=== PATIENT | female | born 1965 | race African-American/Black ===

== ENCOUNTER 2021-02-10 21:40 | Inpatient (IN) ==
[2021-02-11 01:53] LABS: Basophils % 0.1 % (0.0-0.8); Eosinophils # 0.1 10*3/uL (0.0-0.87); Eosinophils % 0.3 % (0.00-10.9); Immature Granulocytes % 1.6 %; Immature Granulocytes Absolute 0.27 #; Lymphocytes # 2.3 10*3/uL (1.4-4.0); Lymphocytes % 13.1 % (21.3-54.2); Mean Corpuscular HGB Conc 32.4 GM/DL (32-36); Mean Corpuscular Volume 76.8 FL (87-102); Mean Platelet Volume 10.3 FL (9.6-12.0); Monocytes % 6.2 % (1.7-12.7); Neutrophils % 78.7 % (38.7-73.9); Platelet Count 242 T/CUMM (130-400); Red Blood Count 4.82 MC/CUMM (3.8-5.5); Red Cell Distribution Width 14.5 % (9.3-17.3); White Blood Count 17.2 T/CUMM (4-12)
[2021-02-11 02:23] LABS: Albumin 2.3 G/DL (3.4-5.0); Bilirubin,Total 0.6 MG/DL (0.20-1.00); Calcium 8.2 MG/DL (8.5-10.1); Free T4 (Free Thyroxine) 1.67 NG/DL (0.76-1.46); Potassium 3.5 MMOL/L (3.5-5.1); Thyroid Stimulating Hormone 0.26 uIU/ml (0.358-3.74); Total Protein 7.4 G/DL (6.4-8.2)
[2021-02-11] MEDS ORDERED: ENOXAPARIN 30 MG/0.3 ML SYRINGE SUBCUT STA (02:26)
[2021-02-11] MEDS ORDERED: ENOXAPARIN 100 MG/ML SYRINGE SUBCUT STA (02:27)
[2021-02-11] MEDS ORDERED: SODIUM CHLORIDE 0.9% 1,000 ML IV STA (02:28)
[2021-02-11] MEDS ORDERED: ONDANSETRON 4 MG/2 ML VIAL IV ONE (02:28)
[2021-02-11] MEDS ORDERED: MORPHINE 2 MG/1 ML SYRINGE IV STA (02:28)
[2021-02-11] MEDS ORDERED: GLUCAGON 1 MG VIAL IM PRN (04:55)
[2021-02-11] MEDS ORDERED: hydrALAZINE 20 MG/1 ML VIAL IV PRN (04:55)
[2021-02-11] MEDS ORDERED: CALCIUM CARBONATE CHEW 500 MG TABLET PO PRN (04:55)
[2021-02-11] MEDS ORDERED: diphenhydrAMINE CAP 25 MG CAPSULE PO PRN (04:55)
[2021-02-11] MEDS ORDERED: ONDANSETRON 4 MG/2 ML VIAL IV PRN (04:55)
[2021-02-11] MEDS ORDERED: DEXTROSE 50% 25 GM/50 ML VIAL IV PRN (04:55)
[2021-02-11] MEDS ORDERED: NICOTINE 21 MG/24 HR PATCH TRANSDERM PRN (04:55)
[2021-02-11] MEDS ORDERED: SODIUM CHLORIDE 0.9% 1,000 ML IV SCH (05:00)
[2021-02-11] MEDS: cefTRIAXone 1,000 MG in SODIUM CHLORIDE 0.9% 100 ML IV SCH (06:20)
[2021-02-11] MEDS ORDERED: cefTRIAXone 1,000 MG VIAL ONE (06:21)
[2021-02-11] MEDS ORDERED: SODIUM CHLORIDE 0.9% 100 ML IV ONE (06:22)
[2021-02-11] MEDS ORDERED: DEXAMETHASONE 4 MG/1 ML VIAL IV SCH (09:00)
[2021-02-11] MEDS: FAMOTIDINE 20 MG TABLET PO SCH ×2 (10:17→20:32)
[2021-02-11] MEDS: ASCORBIC ACID 500 MG TABLET PO SCH ×2 (10:17→20:31)
[2021-02-11] MEDS: ZINC GLUCONATE 50 MG TABLET PO SCH (10:18)
[2021-02-11] MEDS: CETIRIZINE 10 MG TABLET PO SCH (10:18)
[2021-02-11] MEDS: CHOLECALCIFEROL 1,000 UNIT TABLET PO SCH (10:18)
[2021-02-11] MEDS: PROPRANOLOL 10 MG TABLET PO SCH ×2 (11:44→20:32)
[2021-02-11] MEDS: ENOXAPARIN 100 MG/ML SYRINGE SUBCUT SCH (14:45)
[2021-02-11] MEDS: methIMAzole 5 MG TABLET PO SCH ×2 (14:45→20:31)
[2021-02-12] MEDS: ENOXAPARIN 100 MG/ML SYRINGE SUBCUT SCH (02:46)
[2021-02-12] MEDS: cefTRIAXone 1,000 MG in SODIUM CHLORIDE 0.9% 100 ML IV SCH (05:36)
[2021-02-12 06:37] LABS: Basophils % 0.3 % (0.0-0.8); Eosinophils # 0.1 10*3/uL (0.0-0.87); Eosinophils % 0.3 % (0.00-10.9); Hematocrit 39.7 VOL% (35.7-47.0); Hemoglobin 12.7 GM/DL (12.0-16.0); Immature Granulocytes % 1.6 %; Immature Granulocytes Absolute 0.25 #; Lymphocytes # 2.5 10*3/uL (1.4-4.0); Lymphocytes % 15.8 % (21.3-54.2); Mean Corpuscular Volume 79.6 FL (87-102); Mean Platelet Volume 12.6 FL (9.6-12.0); Monocytes % 8.1 % (1.7-12.7); Neutrophils % 73.9 % (38.7-73.9); Platelet Count 147 T/CUMM (130-400); Red Blood Count 4.99 MC/CUMM (3.8-5.5); Red Cell Distribution Width 14.9 % (9.3-17.3); White Blood Count 15.8 T/CUMM (4-12)
[2021-02-12 06:42] LABS: Calcium 8.6 MG/DL (8.5-10.1); Osmolality,Calculated 267.2 MOS/KG (273-304); Potassium 4.2 MMOL/L (3.5-5.1)
[2021-02-12] MEDS: ZINC GLUCONATE 50 MG TABLET PO SCH (08:54)
[2021-02-12] MEDS: CETIRIZINE 10 MG TABLET PO SCH (08:54)
[2021-02-12] MEDS: ASCORBIC ACID 500 MG TABLET PO SCH ×2 (08:55→20:33)
[2021-02-12] MEDS: AZITHROMYCIN 250 MG TABLET PO SCH (08:55)
[2021-02-12] MEDS: APIXABAN 5 MG TABLET PO SCH ×2 (08:55→20:33)
[2021-02-12] MEDS: PROPRANOLOL 10 MG TABLET PO SCH ×2 (08:55→20:33)
[2021-02-12] MEDS: CHOLECALCIFEROL 1,000 UNIT TABLET PO SCH (08:55)
[2021-02-12] MEDS: FAMOTIDINE 20 MG TABLET PO SCH ×2 (08:55→20:34)
[2021-02-12] MEDS: methIMAzole 5 MG TABLET PO SCH ×3 (08:55→20:33)
[2021-02-12] MEDS: ACETAMINOPHEN 325 MG TABLET PO PRN (16:27)
[2021-02-13 05:07] LABS: Basophils % 0.1 % (0.0-0.8); Red Cell Distribution Width 14.6 % (9.3-17.3)
[2021-02-13] MEDS: cefTRIAXone 1,000 MG in SODIUM CHLORIDE 0.9% 100 ML IV SCH (05:20)
[2021-02-13 05:42] LABS: Eosinophils # 0.1 10*3/uL (0.0-0.87); Eosinophils % 0.4 % (0.00-10.9); Hematocrit 32.9 VOL% (35.7-47.0); Immature Granulocytes Absolute 0.15 #; Lymphocytes % 13.2 % (21.3-54.2); Mean Corpuscular HGB Conc 31.6 GM/DL (32-36); Mean Corpuscular Volume 78.9 FL (87-102); Mean Platelet Volume 11.1 FL (9.6-12.0); Monocytes % 8.8 % (1.7-12.7); Neutrophils % 76.5 % (38.7-73.9); Platelet Count 210 T/CUMM (130-400); Red Blood Count 4.17 MC/CUMM (3.8-5.5); White Blood Count 15.2 T/CUMM (4-12)
[2021-02-13 05:44] LABS: Hemoglobin 10.4 GM/DL (12.0-16.0)
[2021-02-13 05:46] LABS: Calcium 8.5 MG/DL (8.5-10.1); Osmolality,Calculated 266.2 MOS/KG (273-304); Potassium 4.4 MMOL/L (3.5-5.1)
[2021-02-13] MEDS: CHOLECALCIFEROL 1,000 UNIT TABLET PO SCH (08:43)
[2021-02-13] MEDS: PROPRANOLOL 10 MG TABLET PO SCH (08:43)
[2021-02-13] MEDS: FAMOTIDINE 20 MG TABLET PO SCH ×2 (08:44→21:21)
[2021-02-13] MEDS: AZITHROMYCIN 250 MG TABLET PO SCH (08:44)
[2021-02-13] MEDS: CETIRIZINE 10 MG TABLET PO SCH (08:44)
[2021-02-13] MEDS: APIXABAN 5 MG TABLET PO SCH ×2 (08:44→21:19)
[2021-02-13] MEDS: methIMAzole 5 MG TABLET PO SCH ×3 (08:44→21:20)
[2021-02-13] MEDS: ZINC GLUCONATE 50 MG TABLET PO SCH (08:44)
[2021-02-13] MEDS: ASCORBIC ACID 500 MG TABLET PO SCH ×2 (08:44→21:19)
[2021-02-13] MEDS: ALBUTEROL/IPRATROPIUM 3 ML NEB RESP TX SCH ×2 (13:33→19:37)
[2021-02-13] MEDS: MORPHINE 2 MG/1 ML SYRINGE IV PRN (19:44)
[2021-02-13] MEDS: PROPRANOLOL 20 MG TABLET PO SCH (21:20)
[2021-02-14] MEDS: ALBUTEROL/IPRATROPIUM 3 ML NEB RESP TX SCH ×4 (02:10→19:20)
[2021-02-14 05:07] LABS: Basophils % 0.1 % (0.0-0.8); Eosinophils % 0.2 % (0.00-10.9); Hematocrit 34.7 VOL% (35.7-47.0); Immature Granulocytes % 1.5 %; Immature Granulocytes Absolute 0.21 #; Lymphocytes % 14.4 % (21.3-54.2); Mean Corpuscular HGB Conc 31.7 GM/DL (32-36); Mean Corpuscular Volume 77.8 FL (87-102); Mean Platelet Volume 10.4 FL (9.6-12.0); Neutrophils % 74.8 % (38.7-73.9); Platelet Count 278 T/CUMM (130-400); Red Blood Count 4.46 MC/CUMM (3.8-5.5); Red Cell Distribution Width 14.5 % (9.3-17.3)
[2021-02-14 05:32] LABS: Calcium 8.6 MG/DL (8.5-10.1); Osmolality,Calculated 269.1 MOS/KG (273-304); Potassium 4.4 MMOL/L (3.5-5.1)
[2021-02-14] MEDS: cefTRIAXone 1,000 MG in SODIUM CHLORIDE 0.9% 100 ML IV SCH (05:57)
[2021-02-14] MEDS: PROPRANOLOL 20 MG TABLET PO SCH ×2 (08:28→20:38)
[2021-02-14] MEDS: methIMAzole 5 MG TABLET PO SCH ×3 (08:29→20:38)
[2021-02-14] MEDS: FAMOTIDINE 20 MG TABLET PO SCH ×2 (08:29→20:39)
[2021-02-14] MEDS: ZINC GLUCONATE 50 MG TABLET PO SCH (08:29)
[2021-02-14] MEDS: CHOLECALCIFEROL 1,000 UNIT TABLET PO SCH (08:29)
[2021-02-14] MEDS: CETIRIZINE 10 MG TABLET PO SCH (08:29)
[2021-02-14] MEDS: ASCORBIC ACID 500 MG TABLET PO SCH ×2 (08:29→20:38)
[2021-02-14] MEDS: APIXABAN 5 MG TABLET PO SCH (08:29)
[2021-02-14] MEDS: LEVOFLOXACIN INJ 750 MG/150 ML PREMIX IV SCH (08:30)
[2021-02-14] MEDS: ACETAMINOPHEN 325 MG TABLET PO PRN (08:30)
[2021-02-14] MEDS: WARFARIN 7.5 MG TABLET PO SCH (17:35)
[2021-02-14] MEDS: ENOXAPARIN 150 MG/ML SYRINGE SUBCUT SCH (20:38)
[2021-02-15] MEDS: ACETAMINOPHEN 325 MG TABLET PO PRN (00:12)
[2021-02-15] MEDS: ALBUTEROL/IPRATROPIUM 3 ML NEB RESP TX SCH ×4 (00:15→19:23)
[2021-02-15] MEDS: MORPHINE 2 MG/1 ML SYRINGE IV PRN (01:11)
[2021-02-15 05:58] LABS: Basophils % 0.2 % (0.0-0.8); Eosinophils % 0.2 % (0.00-10.9); Hematocrit 31.9 VOL% (35.7-47.0); Hemoglobin 10.1 GM/DL (12.0-16.0); Immature Granulocytes % 1.2 %; Immature Granulocytes Absolute 0.15 #; Lymphocytes # 2.1 10*3/uL (1.4-4.0); Lymphocytes % 16.1 % (21.3-54.2); Mean Corpuscular HGB Conc 31.7 GM/DL (32-36); Mean Corpuscular Volume 78.2 FL (87-102); Mean Platelet Volume 11.1 FL (9.6-12.0); Neutrophils % 73.3 % (38.7-73.9); Platelet Count 219 T/CUMM (130-400); Red Blood Count 4.08 MC/CUMM (3.8-5.5); Red Cell Distribution Width 14.4 % (9.3-17.3); White Blood Count 12.8 T/CUMM (4-12)
[2021-02-15 06:03] LABS: INR 1.2; PT Patient Result 13.5 SECS (10.5-12.0)
[2021-02-15 06:27] LABS: Calcium 8.7 MG/DL (8.5-10.1); Osmolality,Calculated 264.4 MOS/KG (273-304); Potassium 4.2 MMOL/L (3.5-5.1)
[2021-02-15] MEDS: PROPRANOLOL 20 MG TABLET PO SCH ×2 (10:29→21:07)
[2021-02-15] MEDS: ENOXAPARIN 150 MG/ML SYRINGE SUBCUT SCH ×2 (10:29→21:07)
[2021-02-15] MEDS: methIMAzole 5 MG TABLET PO SCH ×3 (10:30→21:07)
[2021-02-15] MEDS: FAMOTIDINE 20 MG TABLET PO SCH ×2 (10:30→21:07)
[2021-02-15] MEDS: CHOLECALCIFEROL 1,000 UNIT TABLET PO SCH (10:31)
[2021-02-15] MEDS: ZINC GLUCONATE 50 MG TABLET PO SCH (10:31)
[2021-02-15] MEDS: CETIRIZINE 10 MG TABLET PO SCH (10:31)
[2021-02-15] MEDS: ASCORBIC ACID 500 MG TABLET PO SCH ×2 (10:31→21:07)
[2021-02-15] MEDS: LEVOFLOXACIN INJ 750 MG/150 ML PREMIX IV SCH (10:37)
[2021-02-15] MEDS: WARFARIN 7.5 MG TABLET PO SCH (17:58)
[2021-02-16] MEDS: ALBUTEROL/IPRATROPIUM 3 ML NEB RESP TX SCH ×2 (01:26→07:07)
[2021-02-16] MEDS: MORPHINE 2 MG/1 ML SYRINGE IV PRN ×2 (01:35→22:57)
[2021-02-16 06:55] LABS: Basophils % 0.1 % (0.0-0.8); Eosinophils # 0.1 10*3/uL (0.0-0.87); Eosinophils % 0.8 % (0.00-10.9); Hematocrit 29.5 VOL% (35.7-47.0); Hemoglobin 9.4 GM/DL (12.0-16.0); Immature Granulocytes % 1.1 %; Immature Granulocytes Absolute 0.13 #; Lymphocytes % 16.8 % (21.3-54.2); Mean Corpuscular HGB Conc 31.9 GM/DL (32-36); Mean Corpuscular Volume 78.2 FL (87-102); Monocytes % 8.9 % (1.7-12.7); Neutrophils % 72.3 % (38.7-73.9); Red Blood Count 3.77 MC/CUMM (3.8-5.5); Red Cell Distribution Width 14.4 % (9.3-17.3); White Blood Count 12.1 T/CUMM (4-12)
[2021-02-16 06:56] LABS: Platelet Count 338 T/CUMM (130-400)
[2021-02-16 07:02] LABS: INR 2.1; PT Patient Result 22.6 SECS (10.5-12.0)
[2021-02-16 07:09] LABS: Calcium 8.5 MG/DL (8.5-10.1); Osmolality,Calculated 269.1 MOS/KG (273-304); Potassium 4.2 MMOL/L (3.5-5.1)
[2021-02-16 07:11] LABS: Platelet Estimate Normal
[2021-02-16 07:12] LABS: Anisocytosis 1+
[2021-02-16] MEDS: PROPRANOLOL 20 MG TABLET PO SCH ×2 (09:37→20:54)
[2021-02-16] MEDS: ENOXAPARIN 150 MG/ML SYRINGE SUBCUT SCH ×2 (09:38→20:54)
[2021-02-16] MEDS: LEVOFLOXACIN INJ 750 MG/150 ML PREMIX IV SCH (09:38)
[2021-02-16] MEDS: FAMOTIDINE 20 MG TABLET PO SCH ×2 (09:38→20:54)
[2021-02-16] MEDS: ASCORBIC ACID 500 MG TABLET PO SCH ×2 (09:39→20:54)
[2021-02-16] MEDS: CETIRIZINE 10 MG TABLET PO SCH (09:39)
[2021-02-16] MEDS: CHOLECALCIFEROL 1,000 UNIT TABLET PO SCH (09:39)
[2021-02-16] MEDS: methIMAzole 5 MG TABLET PO SCH ×3 (09:39→20:54)
[2021-02-16] MEDS: ZINC GLUCONATE 50 MG TABLET PO SCH (09:39)
[2021-02-16] MEDS ORDERED: REMDESIVIR 200 MG in SODIUM CHLORIDE 0.9% 210 ML IV ONE (17:30)
[2021-02-16] MEDS: WARFARIN 7.5 MG TABLET PO SCH (18:54)
[2021-02-16] MEDS: ALBUTEROL INHALER 18 GM INH SCH ×2 (19:53→20:53)
[2021-02-17] MEDS: ALBUTEROL INHALER 18 GM INH SCH ×4 (01:48→18:18)
[2021-02-17] MEDS: MORPHINE 2 MG/1 ML SYRINGE IV PRN (03:45)
[2021-02-17 06:11] LABS: Basophils % 0.2 % (0.0-0.8); Eosinophils # 0.1 10*3/uL (0.0-0.87); Eosinophils % 0.7 % (0.00-10.9); Hematocrit 29.5 VOL% (35.7-47.0); Hemoglobin 9.7 GM/DL (12.0-16.0); Immature Granulocytes % 1.3 %; Immature Granulocytes Absolute 0.15 #; Lymphocytes # 1.8 10*3/uL (1.4-4.0); Lymphocytes % 16.4 % (21.3-54.2); Mean Corpuscular HGB Conc 32.9 GM/DL (32-36); Mean Corpuscular Volume 76.8 FL (87-102); Mean Platelet Volume 10.2 FL (9.6-12.0); Monocytes % 8.3 % (1.7-12.7); Neutrophils % 73.1 % (38.7-73.9); Platelet Count 310 T/CUMM (130-400); Red Blood Count 3.84 MC/CUMM (3.8-5.5); Red Cell Distribution Width 14.3 % (9.3-17.3); White Blood Count 11.1 T/CUMM (4-12)
[2021-02-17 06:23] LABS: INR 3.6; PT Patient Result 36.4 SECS (10.5-12.0)
[2021-02-17 06:38] LABS: Calcium 8.5 MG/DL (8.5-10.1)
[2021-02-17 06:51] LABS: Ferritin 4589.6 ng/ml (8-252)
[2021-02-17 07:41] LABS: Hypochromasia 2+; Microcytosis 1+; Platelet Estimate Normal
[2021-02-17] MEDS: ZINC GLUCONATE 50 MG TABLET PO SCH (08:54)
[2021-02-17] MEDS: methIMAzole 5 MG TABLET PO SCH ×3 (08:54→21:01)
[2021-02-17] MEDS: ASCORBIC ACID 500 MG TABLET PO SCH ×2 (08:54→21:01)
[2021-02-17] MEDS: PROPRANOLOL 20 MG TABLET PO SCH ×2 (08:54→21:01)
[2021-02-17] MEDS: ENOXAPARIN 150 MG/ML SYRINGE SUBCUT SCH (08:54)
[2021-02-17] MEDS: CHOLECALCIFEROL 1,000 UNIT TABLET PO SCH (08:54)
[2021-02-17] MEDS: CETIRIZINE 10 MG TABLET PO SCH (08:54)
[2021-02-17] MEDS: FAMOTIDINE 20 MG TABLET PO SCH ×2 (08:54→21:01)
[2021-02-17] MEDS: REMDESIVIR 100 MG in SODIUM CHLORIDE 0.9% 100 ML IV SCH (10:15)
[2021-02-17] MEDS: WARFARIN 5 MG TABLET PO SCH (18:09)
[2021-02-17] MEDS: ACETAMINOPHEN 325 MG TABLET PO PRN (21:01)
[2021-02-18] MEDS: ALBUTEROL INHALER 18 GM INH SCH ×4 (00:44→21:30)
[2021-02-18] MEDS: guaiFENesin/DM ER 600-30 MG TABLET PO PRN ×2 (03:23→21:30)
[2021-02-18 07:04] LABS: Basophils % 0.2 % (0.0-0.8); Eosinophils # 0.1 10*3/uL (0.0-0.87); Eosinophils % 1.1 % (0.00-10.9); Hematocrit 29.2 VOL% (35.7-47.0); Hemoglobin 9.3 GM/DL (12.0-16.0); Immature Granulocytes % 1.2 %; Immature Granulocytes Absolute 0.14 #; Lymphocytes # 1.7 10*3/uL (1.4-4.0); Lymphocytes % 14.5 % (21.3-54.2); Mean Corpuscular HGB Conc 31.8 GM/DL (32-36); Mean Corpuscular Volume 77.9 FL (87-102); Mean Platelet Volume 10.1 FL (9.6-12.0); Monocytes % 8.7 % (1.7-12.7); Neutrophils % 74.3 % (38.7-73.9); Platelet Count 358 T/CUMM (130-400); Red Blood Count 3.75 MC/CUMM (3.8-5.5); Red Cell Distribution Width 14.4 % (9.3-17.3)
[2021-02-18 07:42] LABS: Calcium 8.7 MG/DL (8.5-10.1); Ferritin 3277.5 ng/ml (8-252); Osmolality,Calculated 268.1 MOS/KG (273-304); Potassium 3.9 MMOL/L (3.5-5.1)
[2021-02-18] MEDS: ZINC GLUCONATE 50 MG TABLET PO SCH (08:58)
[2021-02-18] MEDS: PROPRANOLOL 20 MG TABLET PO SCH ×2 (08:58→21:30)
[2021-02-18] MEDS: FAMOTIDINE 20 MG TABLET PO SCH ×2 (08:58→21:30)
[2021-02-18] MEDS: methIMAzole 5 MG TABLET PO SCH ×3 (08:58→21:30)
[2021-02-18] MEDS: REMDESIVIR 100 MG in SODIUM CHLORIDE 0.9% 100 ML IV SCH (08:58)
[2021-02-18] MEDS: CETIRIZINE 10 MG TABLET PO SCH (08:58)
[2021-02-18] MEDS: CHOLECALCIFEROL 1,000 UNIT TABLET PO SCH (08:58)
[2021-02-18] MEDS: ASCORBIC ACID 500 MG TABLET PO SCH ×2 (08:58→21:30)
[2021-02-18] MEDS: WARFARIN 5 MG TABLET PO SCH (17:13)
[2021-02-19] MEDS: ALBUTEROL INHALER 18 GM INH SCH ×4 (01:04→19:56)
[2021-02-19] MEDS: ACETAMINOPHEN 325 MG TABLET PO PRN ×2 (01:04→23:23)
[2021-02-19] MEDS: ASCORBIC ACID 500 MG TABLET PO SCH ×2 (08:29→20:40)
[2021-02-19] MEDS: ZINC GLUCONATE 50 MG TABLET PO SCH (08:29)
[2021-02-19] MEDS: PROPRANOLOL 20 MG TABLET PO SCH ×2 (08:29→20:40)
[2021-02-19] MEDS: CHOLECALCIFEROL 1,000 UNIT TABLET PO SCH (08:29)
[2021-02-19] MEDS: FAMOTIDINE 20 MG TABLET PO SCH ×2 (08:30→20:39)
[2021-02-19] MEDS: methIMAzole 5 MG TABLET PO SCH ×3 (08:30→20:40)
[2021-02-19] MEDS: CETIRIZINE 10 MG TABLET PO SCH (08:30)
[2021-02-19] MEDS ORDERED: APIXABAN 5 MG TABLET PO SCH (09:00)
[2021-02-19] MEDS: APIXABAN 5 MG TABLET PO SCH ×2 (10:41→20:39)
[2021-02-19] MEDS: REMDESIVIR 100 MG in SODIUM CHLORIDE 0.9% 100 ML IV SCH (10:41)
[2021-02-20] MEDS: ALBUTEROL INHALER 18 GM INH SCH ×3 (00:45→13:56)
[2021-02-20 03:17] LABS: Basophils % 0.1 % (0.0-0.8); Eosinophils # 0.2 10*3/uL (0.0-0.87); Eosinophils % 2.1 % (0.00-10.9); Hematocrit 30.1 VOL% (35.7-47.0); Hemoglobin 9.5 GM/DL (12.0-16.0); Immature Granulocytes % 1.3 %; Immature Granulocytes Absolute 0.12 #; Lymphocytes # 1.9 10*3/uL (1.4-4.0); Lymphocytes % 20.3 % (21.3-54.2); Mean Corpuscular HGB Conc 31.6 GM/DL (32-36); Mean Platelet Volume 9.9 FL (9.6-12.0); Monocytes % 7.8 % (1.7-12.7); Neutrophils % 68.4 % (38.7-73.9); Platelet Count 405 T/CUMM (130-400); Red Blood Count 3.86 MC/CUMM (3.8-5.5); Red Cell Distribution Width 14.6 % (9.3-17.3); White Blood Count 9.3 T/CUMM (4-12)
[2021-02-20 03:41] LABS: Calcium 8.6 MG/DL (8.5-10.1); Potassium 4.1 MMOL/L (3.5-5.1)
[2021-02-20] MEDS: ASCORBIC ACID 500 MG TABLET PO SCH (08:28)
[2021-02-20] MEDS: methIMAzole 5 MG TABLET PO SCH ×2 (08:28→14:32)
[2021-02-20] MEDS: ZINC GLUCONATE 50 MG TABLET PO SCH (08:28)
[2021-02-20] MEDS: CHOLECALCIFEROL 1,000 UNIT TABLET PO SCH (08:28)
[2021-02-20] MEDS: FAMOTIDINE 20 MG TABLET PO SCH (08:28)
[2021-02-20] MEDS: APIXABAN 5 MG TABLET PO SCH (08:28)
[2021-02-20] MEDS: CETIRIZINE 10 MG TABLET PO SCH (08:28)
[2021-02-20] MEDS: PROPRANOLOL 20 MG TABLET PO SCH (08:28)
[2021-02-20] MEDS: REMDESIVIR 100 MG in SODIUM CHLORIDE 0.9% 100 ML IV SCH (08:50)
[2021-02-20 15:54] VITALS: BP 107/77
== END 2021-02-20 20:15 | disposition home or self-care (01) | DRG 177 ==
LOC: N.EDINP 21:40 → N.ED 21:40 → SUATTDRO 02-11 04:24 → N.3E 02-11 10:28 → SUATTDRO 02-12 16:36 → N.2E 02-16 16:29
PROVIDERS: ADMIT Internal Medicine; ATTEND Hospitalist